=== PATIENT | female | born 1955 | race Caucasian/White ===

== ENCOUNTER → 2023-06-07 06:24 | Day surgery (SDC) | payer MEDICARE, OTHER, SELFPAY | LOC: GI 06:24 | PROVIDERS: ATTENDING PHYSICIAN Internal Medicine Gastroenterology | DX: Z12.11 Encounter for screening for malignant neoplasm of colon (principal); R19.5 Other fecal abnormalities; K57.30 Diverticulosis of large intestine without perforation or abscess without bleeding; K64.8 Other hemorrhoids; D12.0 Benign neoplasm of cecum; D12.5 Benign neoplasm of sigmoid colon | CPT/HCPCS: 45385; 45380; 88305 ==

== ENCOUNTER 2023-08-19 08:22 | Emergency (ER) | payer MEDICARE, OTHER, SELFPAY ==
[2023-08-19 08:24] VITALS: BP 139/83
[2023-08-19 08:52] VITALS: BMI 38.0
--- NOTE | 2023-08-19 09:01 | ED.GENMED ---
History of Present Illness
General
Chief Complaint: Abdominal Symptoms
Time Seen by Provider: 08/19/23 08:33
History of Present Illness
History of Present Illness:
68-year-old female presents the emergency department for evaluation of left lower quadrant abdominal pain ongoing for the past 7 days. She has a known history of diverticulitis and the symptoms are comparable, states she can typically get over a
flareup with clear liquid diet and bowel rest. Pain has been worsening despite these measures at home and she was advised by her PCP to come to the emergency department. She reports chills last night but no objective fevers.
Past History
Past History
ED Past Medical History: Other (diverticulitis)
Social History
Tobacco: Non-smoker
Alcohol: None
Personal: Single
Employment: Not employed
Review of Systems
Review of Systems
Allergies reviewed?: Yes
All Other Systems: ROS reviewed and negative except as documented in HPI and ROS
Phy Exam
Physical Exam
Physical Exam:
GEN: Well appearing, NAD, WDWN
HEENT: Oral mucosa moist, no scleral icterus
Cardiac: Regular rate
Lung: No respiratory distress, no tachypnea
Abdomen: Soft, focal tenderness left lower quadrant, no peritoneal signs
MSK: No gross deformity or injuries
Skin: Good color, no pallor or jaundice, no rashes
Neuro: AO x3, moves all extremities freely
Psych: Calm, cooperative
Course
Orders/Labs/Results
Orders:
Orders
08/19/23 08:48
CT Abd/Pel (IV only)-DH only Urgent
Comment:
Reason For Exam: LLQ pain, chills
08/19/23 09:04
Complete Blood Count/With Diff Urgent
Comprehensive Metabolic Panel Urgent
Urinalysis Reflex To Culture Urgent
Date Specimen was Collected: 08/19/23
Time Specimen was Collected: 08:51
Urine Microscopic Reflex Cult Urgent
Urine Culture Urgent
RENITA Source: U
Specimen Description:
Date Specimen was Collected: 08/19/23
Time Specimen was Collected: 08:51
08/19/23 10:07
Ketorolac [Toradol] 15 mg IV NOW STA
08/19/23 10:56
Ampicillin/Sulbactam 3 G [Unasyn] 3 gm 0.9% Sodium Chloride 100 ml [Nss] 100 ml IV NOW
Abnormal Lab Results
08/19/23
09:04
WBC 15.5 H 10^3/uL
(4.8-10.8)
Abs Immat Gran (auto) 0.1 H 10^3/uL
(0-0.05)
Absolute Neuts (auto) 11.8 H 10^3/uL
(1.4-6.5)
Absolute Monos (auto) 1.3 H 10^3/uL
(0.1-0.6)
Neutrophils % 75.8 H %
(42.2-75.2)
Lymphocytes % 14.4 L %
(20.5-51.1)
Glucose 142 H mg/dl
(70-99)
Leukocyte Esterase Rfl 1+ A
(Negative)
Urine Bacteria (Reflex) Few A
(Negative)
08/19/23 09:04
08/19/23 09:04
Vital Signs
Initial and Last Documented VS:
Initial Vital Signs
Temp Pulse Resp BP Pulse Ox
98.4 F 98 17 139/83 96
08/19/23 08:24 08/19/23 08:24 08/19/23 08:24 08/19/23 08:24 08/19/23 08:24
Last Documented Vital Signs
Temp Pulse Resp BP Pulse Ox
98.4 F 98 17 139/83 96
08/19/23 08:24 08/19/23 08:24 08/19/23 08:24 08/19/23 08:24 08/19/23 08:24
MDM/Problems Addressed
MDM/Problems Addressed:
Patient's workup reveals moderate to severe diverticulitis with no evidence for perforation or abscess. I reviewed the typical progression of symptoms and care with the patient, she would prefer discharge home. Additional IV antibiotics which is
not unreasonable at this time. Initial dose of IV Unasyn given in the emergency department. Discussed ED return parameters and supportive care
*Critical Care Note
Total Time (30-74mins, 75-104mins- exclusive of procedures): Not Applicable
ED Attending Note
-
Portions of this chart may have been created with voice recognition software.� Occasional wrong word or��sound alike� substitutions may have occurred due to the inherent limitations of voice recognition software.
Discharge Plan
Departure
Patient Disposition: Home (Routine Discharge)
Date of Disposition: 08/19/23
Time of Disposition: 10:26
Patient with high blood pressure during this ER visit?: No
Discharge Problem:
Acute diverticulitis
Instructions: Clear Liquid Diet, Diverticulitis (DC)
Prescriptions:
New
amoxicillin-pot clavulanate 875-125 mg tablet
1 tab PO BID 10 Days Qty: 20 0RF
No Action
cyclobenzaprine 10 MG tablet
10 mg PO TIDPRN PRN (Reason: back pain/spasms) Qty: 30 0RF
clobetasol-emollient 100 GM foam
100 gm TP BIDPRN PRN (Reason: psoriatic plaques) Qty: 1 0RF
prednisone 20 MG tablet
40 mg PO DAILY Qty: 8 0RF
cyclobenzaprine 5 mg tablet
5 mg PO TID PRN (Reason: muscle spasm) Qty: 20 0RF
Referrals:
Gerber Thurman MD [Family Provider] -
Interventions
Interventions:
*Risk Screen - Suicide Last Done: 08/19/23 08:53
*General Assessment Last Done: 08/19/23 08:53
*Neglect/Abuse Screening Last Done: 08/19/23 08:53
ED- Fall Risk Assessment Last Done: 08/19/23 08:53
*ED COVID-19 Vaccine History Last Done: 08/19/23 08:53
*Nursing Disposition Last Done: 08/19/23 12:04
CW-Nysneu-Ldkgjifhor Assessment Last Done: 08/19/23 08:53
Discharge Date and Time
Discharge Date/Time: 08/19/23 12:06
Print Language: MACEDONIAN
[2023-08-19 09:17] LABS: % Basophils 0.5 % (0-2); % Eosinophils 0.6 % (0-6); % Immature Granulocytes 0.5 % (0-0.5); % Lymphocytes 14.4 % (20.5-51.1); % Monocytes 8.2 % (1.7-9.3); % Neutrophils 75.8 % (42.2-75.2); Absolute Basophils 0.1 10^3/uL (0-0.2); Absolute Eosinophils 0.1 10^3/uL (0-0.7); Absolute Immature Granulocytes 0.1 10^3/uL (0-0.05); Absolute Lymphocytes 2.2 10^3/uL (1.2-3.4); Absolute Monocytes 1.3 10^3/uL (0.1-0.6); Absolute Neutrophils 11.8 10^3/uL (1.4-6.5); Hematocrit 39.4 % (37.0-47.0); Hemoglobin 13.4 g/dL (12.0-16.0); Mean Corpuscular Hgb 29.3 pg (27.0-31.0); Mean Platelet Volume 8.6 fL (7.4-10.4); Nucleated Red Blood Cells % 0 %; Platelet Count 303 10^3/uL (130-400); Red Blood Cell Count 4.58 10^6/uL (4.20-5.40); Red Cell Dist. Width 12.9 % (11.5-14.5); White Blood Cell Count 15.5 10^3/uL (4.8-10.8)
[2023-08-19 09:32] LABS: Urine Albumin Negative (Neg - Trace); Urine Bilirubin Negative (Negative); Urine Character Clear (Clear); Urine Color Yellow; Urine Glucose Negative (Negative); Urine Ketone Negative (Negative); Urine Leukocyte 1+ (Negative); Urine Nitrite Negative (Negative); Urine Occult Blood Negative (Negative); Urine Urobilinogen Negative (Neg - 1+)
[2023-08-19 09:33] LABS: ALT (SGPT) 16 U/L (0-35); AST (SGOT) 22 U/L (14-36); Alkaline Phosphatase 105 U/L (38-126); Blood Urea Nitrogen 11 mg/dl (7-17); Calcium 9.2 mg/dl (8.4-10.2); Carbon Dioxide 27 mmol/L (22-30); Chloride 104 mmol/L (98-107); Estimated Creatinine Clearance 108 ml/min; Glucose 142 mg/dl (70-99); Potassium 4.3 mmol/L (3.5-5.1); Sodium 138 mmol/L (135-145); Total Bilirubin 0.8 mg/dl (0.2-1.3); eGFR > 60.00
[2023-08-19 09:47] LABS: Urine Bacteria Few (Negative); Urine Red Blood Cell 0-2 /HPF (0-2); Urine Squamous Cell 0-2 /LPF (Few)
[2023-08-19] MEDS: TORADOL 15 MG IV (11:06)
[2023-08-19] MEDS: UNASYN IV (11:08)
== END 2023-08-19 12:06 | disposition home or self-care (01) ==
LOC: EMR 08:22
PROVIDERS: Physician Assistant; EMERGENCY PHYSICIAN Emergency Medicine; FAMILY PHYSICIAN Family Medicine
DX: K57.92 Diverticulitis of intestine, part unspecified, without perforation or abscess without bleeding (principal)
CPT/HCPCS: 99284; 96374; 96375; 74177; 80053; 81003; 81015; 85025; 87086; Q9967

== ENCOUNTER 2023-08-28 12:18 | Emergency (ER) | payer MEDICARE, OTHER, SELFPAY ==
[2023-08-28 12:19] VITALS: BP 138/96
--- NOTE | 2023-08-28 13:42 | ED.GENMED ---
History of Present Illness
General
Chief Complaint: Musculo-Skeletal Complaint
Source: patient
Exam Limitations: none
Time Seen by Provider: 08/28/23 13:05
Nursing documentation reviewed up to this point in time: agreed with
History of Present Illness
History of Present Illness:
68 y/o F with h/o htn
with left ankle pain/swelling after twisting it and feeling a crack
sh eis unable to weight bear
no numbness/tingling/weakness
no knee pain
nothing taken for pain
Past History
Past History
ED Past Medical History: Other (diverticulitis)
Social History
Tobacco: Non-smoker
Alcohol: None
Personal: Single
Employment: Not employed
Review of Systems
Review of Systems
Allergies reviewed?: Yes
All Other Systems: Not applicable
Phy Exam
Physical Exam
Physical Exam:
GENERAL: Alert , in no apparent distress, comfortable at rest
HEAD: NCAT
CV: 2+ DP PULSES B/L
NEUROLOGICAL: Alert and oriented, no focal neuro deficits, , 5/5 strength, sensation intact, ambulation slight limp right leg
SKIN: Warm and dry, some light bruising
MUSCULOSKELETAL:
PSYCH: Normal and appropriate interaction.
Course
Orders/Labs/Results
Orders:
Orders
08/28/23 12:23
Ankle, left 3 view CR [CR Ankle - Left Min 3 Views ] Urgent
Comment:
Reason For Exam: pain and swelling
08/28/23 13:42
Acetaminophen [Tylenol] 650 mg PO NOW STA
08/28/23 14:01
Acetaminophen [Tylenol] 650 mg .ROUTE .STK-MED ONE
Vital Signs
Initial and Last Documented VS:
Initial Vital Signs
Temp Pulse Resp BP Pulse Ox
98.0 F 77 18 138/96 97
08/28/23 12:19 08/28/23 12:19 08/28/23 12:19 08/28/23 12:19 08/28/23 12:19
Last Documented Vital Signs
Temp Pulse Resp BP Pulse Ox
98.0 F 77 18 138/96 97
08/28/23 12:19 08/28/23 12:19 08/28/23 12:19 08/28/23 12:19 08/28/23 12:19
MDM/Problems Addressed
Differential Diagnosis Includes:
anle sprain, ankle fracture
MDM/Problems Addressed:
68 y/o F with htn
left lateral ankle pain/swellin after inversion injury, not fall
left sided tenderness
normal pulse
nv intact
normal foot and knee
xray indep reviewed, small lucencies likely avulsion from sprain
d/w rads who agrees
d/w ortho, can be minimal wbat with boot and crutches orwalker
d/c home
*Critical Care Note
Total Time (30-74mins, 75-104mins- exclusive of procedures): Not Applicable
ED Attending Note
-
Portions of this chart may have been created with voice recognition software.� Occasional wrong word or��sound alike� substitutions may have occurred due to the inherent limitations of voice recognition software.
Discharge Plan
Departure
Patient Disposition: Home (Routine Discharge)
Date of Disposition: 08/28/23
Time of Disposition: 14:54
Patient with high blood pressure during this ER visit?: No
Condition: Fair
Discharge Problem:
Left ankle sprain, Avulsion fracture of distal fibula
Instructions: How to Use Crutches, Sprain (DC)
Prescriptions:
No Action
cyclobenzaprine 10 MG tablet
10 mg PO TIDPRN PRN (Reason: back pain/spasms) Qty: 30 0RF
clobetasol-emollient 100 GM foam
100 gm TP BIDPRN PRN (Reason: psoriatic plaques) Qty: 1 0RF
prednisone 20 MG tablet
40 mg PO DAILY Qty: 8 0RF
cyclobenzaprine 5 mg tablet
5 mg PO TID PRN (Reason: muscle spasm) Qty: 20 0RF
amoxicillin-pot clavulanate 875-125 mg tablet
1 tab PO BID 10 Days Qty: 20 0RF
Referrals:
Roc Gambino MD [Active] - Follow up in 5-7 days
Linda Morejon CRNP [Family Provider] -
Activity Restrictions/Additional Instructions:
YOU HAVE AN ANKLE SPRAIN THAT PULLED A PIECE OF BONE OF YOUR ANKLE/FOOT
KEEP THE BOOT IN PLACE WHILE AWAKE
YOU CAN TAKE IT OFF AT NIGHT AND TO BATHE
ICE OFF AND ON
MOTRIN EVERY 8HOURS FOR PAIN WITH FOOD
USE THE CRUTCHES TO ALLOW MIMIMAL WEIGHT ON THE L ANKLE UNTIL YOUR PAIN IS IMPROVED
FOLLOW UP WITH ORTHO NEXT WEEK
RETURN FO RANY CONCERNS.
Interventions
Interventions:
*Risk Screen - Suicide Last Done: 08/28/23 13:30
*General Assessment Last Done: 08/28/23 13:30
*Neglect/Abuse Screening Last Done: 08/28/23 13:30
*ED COVID-19 Vaccine History Last Done: 08/28/23 13:30
ED-Musculoskeletal Assessment Last Done: 08/28/23 13:27
Discharge Date and Time
Print Language: SURINAMESE
[2023-08-28] MEDS: TYLENOL 650 MG PO (14:03)
== END 2023-08-28 15:05 | disposition home or self-care (01) ==
LOC: EMR 12:18
PROVIDERS: EMERGENCY PHYSICIAN Emergency Medicine; FAMILY PHYSICIAN Nurse Practitioner
DX: S93.402A Sprain of unspecified ligament of left ankle, initial encounter (principal); X50.1XXA Overexertion from prolonged static or awkward postures, initial encounter; Y93.01 Activity, walking, marching and hiking; Y92.009 Unspecified place in unspecified non-institutional (private) residence as the place of occurrence of the external cause; I10 Essential (primary) hypertension; K57.90 Diverticulosis of intestine, part unspecified, without perforation or abscess without bleeding
CPT/HCPCS: 99283; 29515; 73610